=== PATIENT | female | born 1995 | race Caucasian/White ===

== ENCOUNTER 2020-08-08 13:28 | Emergency (ER) | payer OTHER, SELFPAY ==
--- NOTE | ~2020-08-08 | XR_ITS ---
EXAMINATION: XR tibia fibula RT 2V DATE: 08/08/2020 14:14 INDICATION: Right lower leg pain. TECHNIQUE: 2 views of right tibia and fibula on 4 radiographs were obtained. COMPARISON: None. FINDINGS: Bone alignment is normal. No fracture. Joint spaces are normal. There is a small knee joint effusion. IMPRESSION: 1. Small knee joint effusion. Reviewed, dictated and finalized at location A.
[2020-08-08 13:43] VITALS: BP 133/88; PULSE 75; RESP 16; TEMP 37.2; O2SAT 100
--- NOTE | 2020-08-08 13:56 | ED.GENADULT ---
HPI - General Adult General Chief complaint: Extremity Injury, Lower Stated complaint: INJURED R LEG Time Seen by Provider: 08/08/20 13:56 Source: patient and RN notes reviewed Mode of arrival: ambulatory Limitations: no limitations History of Present Illness HPI narrative: 25-year-old female presents with complains of pain to back of right lower leg for the past 3.5 hours. Sravanthi says she was walking up her steep driveway and heard a pop in right leg. No treatment. Denies radiation of pain. No numbness or tingling or bleeding. No swelling. No loss of mobility. Exacerbating factor consist of bearing weight. Denies recent travel or long car rides. History of DVT or PE. No chest pain or dyspnea. Remains active. The patient reports she have not been diagnosed with COVID-19. The patient reports she received her 1st Pfizer COVID-19 vaccine July 31, 2020. The patient reports she is not waiting for the results of a COVID-19 lab test. The patient reports she do not have fever, chills, weakness, fatigue, myalgia, or facial swelling. The patient reports she do not have a new or worsening cough. The patient reports she do not have any rhinorrhea, congestion, sore throat, nausea, vomiting, abdominal pain, and diarrhea. Tolerating po intake well. Denies concerns for COVID-19 or exposures been home with limited outdoor exposure except for essential household needs, work, and return home. At this time, patient is not suspected of having COVID-19. Some parts of this dictation were generated by voice recognition software and may contain typographical and/or grammatical inaccuracies. Related Data Allergies Allergy/AdvReac Type Severity Reaction Status Date / Time No Known Allergies Allergy Unverified 07/06/17 11:49 Review of Systems Review of Systems: Narrative: CONSTITUTIONAL: Denies fever, chills, sweats. EYES: Denies visual changes, redness, discharge. ENT: Denies rhinorrhea, congestion, sore throat, otalgia. CARDIOVASCULAR: Denies chest pain, palpitations, edema. RESPIRATORY: Denies dyspnea, wheezing, cough. GASTROINTESTINAL: Denies abdominal pain, nausea, vomiting, diarrhea. SKIN: Denies rash or itching. MUSCULOSKELETAL: Denies acute back pain or myalgia. Complains of pain to back of right lower leg. NEUROLOGIC: Denies numbness or focal weakness. PSYCHIATRIC: Denies anxiety or depression. All other systems reviewed & are unremarkable except as noted in HPI and below. [facility] Past Medical History Medical History (Updated 08/09/20 @ 00:00 by Cira Amin) Anxiety Surgical History Surgical History (Updated 08/08/20 @ 14:39 by STAN Rodriguez) History of dental surgery Family History Family History (Updated 08/08/20 @ 14:39 by STAN Rodriguez) Father Medical history unknown Mother Hypertension Grandparent Hypertension Diabetes mellitus Social History Social History (Updated 08/08/20 @ 14:40 by STAN Rodriguez) Smoking status: Never smoker Tobacco type: cigarettes Second hand tobacco smoke exposure: No Alcohol intake: current Substance use: never Substance use type: does not use Living arrangements: with family Occupation/Education: occupation Gender identity (if verbalized by the patient): Female Sexual Orientation (if Verbalized by the Patient): Straight or Heterosexual Comments At time of signature, agree with nurse past medical, surgical, social, and family history. There is no relevant family history pertinent to the presenting complaint. Exam Narrative: Exam Narrative: GENERAL: This is a well-nourished, well-developed patient, in no apparent distress. Talks in full sentences and ambulates with RT antalgic gait without dyspnea. HEAD: Normocephalic, atraumatic. EYES: PERRL. Sclera clear/white. Vision is grossly intact. NECK: Neck supple, non-tender without lymphadenopathy, masses or thyromegaly. CARDIOVASCULAR: Regular rate and rhythm without
[2020-08-08] MEDS: KETOROLAC (*BKC) 60 MG/2 ML VIAL IM (14:37)
== END 2020-08-08 15:00 | disposition home or self-care (01) ==
PROVIDERS: Emergency Provider Nurse Practitioner Family
DX: S86.911A Strain of unspecified muscle(s) and tendon(s) at lower leg level, right leg, initial encounter (principal); X58.XXXA Exposure to other specified factors, initial encounter
CPT/HCPCS: 73590; 96372; 99203; G0463; J1885

== ENCOUNTER 2020-10-28 10:41 | Emergency (ER) | payer OTHER, SELFPAY ==
[2020-10-28 10:55] VITALS: BP 127/77; PULSE 70; RESP 18; TEMP 36.9; O2SAT 100
--- NOTE | 2020-10-28 11:34 | ED.GENADULT ---
HPI - General Adult General Chief complaint: Upper Respiratory Infection Stated complaint: sore throat History of Present Illness HPI narrative: Esther this is a 25-year-old female comes in complaining of a sore throat states that it started last night patient says that she has a history of strep throat patient states that she is taking some allergy medicine but her throat was really hurting when she swallows. Related Data Home Medications Medication Instructions Recorded Confirmed loratadine [Claritin] mg 10/28/20 Allergies Allergy/AdvReac Type Severity Reaction Status Date / Time No Known Allergies Allergy Unverified 07/06/17 11:49 Review of Systems Review of Systems: Narrative: CONSTITUTIONAL: Denies fever, chills, or sweats. EYES: Denies visual changes, redness, or discharge. ENT: Denies rhinorrhea, congestion, reports sore throat, or otalgia. CARDIOVASCULAR:Denies chest pain, palpitations, or edema. RESPIRATORY: Denies cough or dyspnea. GASTROINTESTINAL: Denies abdominal pain, nausea, vomiting, or diarrhea. GENITOURINARY: Denies dysuria or hematuria. SKIN:[Denies rash or itching. MUSCULOSKELETAL:Denies back pain, joint pain, or myalgia. NEUROLOGIC: Denies headache, numbness, or weakness. PSYCHIATRIC:Denies anxiety or depression PMFSH Past Medical History Medical History (Updated 10/28/20 @ 11:56 by Alana Santillan NP) Anxiety Surgical History Surgical History (Updated 08/08/20 @ 14:39 by STAN Rodriguez) History of dental surgery Family History Family History (Updated 08/08/20 @ 14:39 by STAN Rodriguez) Father Medical history unknown Mother Hypertension Grandparent Hypertension Diabetes mellitus Social History Social History (Updated 08/08/20 @ 14:40 by STAN Rodriguez) Smoking status: Never smoker Tobacco type: cigarettes Second hand tobacco smoke exposure: No Alcohol intake: current Substance use: never Substance use type: does not use Gender identity (if verbalized by the patient): Female Comments At time as signature, I have reviewed and agree with nursing past medical, social, surgical and family history. Please see nursing chart for further information. There is no relevant family history pertinent to the presenting complaint. Exam Narrative: Exam Narrative: GENERAL:Well-appearing, well-nourished, and in no acute distress. HEAD:Normocephalic, atraumatic. EYES: PERRLA and EOMI. ENT: Nares clear, no rhinorrhea or epistaxis. Mucous membranes moist. Pharyngeal erythema bilateral enlarged tonsils exudate noted on the left side surrounding tonsil NECK: Supple. CHEST: Clear to auscultation. No respiratory distress. HEART: Regular rate and rhythm. Normal peripheral pulses. ABDOMEN: Soft, nontender, nondistended, normal active bowel sounds. EXTREMITIES: Normal range of motion. No edema. SKIN: Warm, dry, no rash. NEURO: No focal deficits. Alert and oriented x3. Course MANAGER IMAGE/PA Physician Supervision Has had strep is negative Vital Signs Vital signs: Vital Signs Temperature 98.5 F 10/28/20 10:55 Pulse Rate 70 10/28/20 10:55 Respiratory Rate 18 10/28/20 10:55 Blood Pressure 127/77 10/28/20 10:55 Pulse Oximetry 100 10/28/20 10:55 Temperature 98.5 F 10/28/20 10:55 Pulse Rate 70 10/28/20 10:55 Respiratory Rate 18 10/28/20 10:55 Blood Pressure 127/77 10/28/20 10:55 Pulse Oximetry 100 10/28/20 10:55 Medical Decision Making Vital Signs Vital Signs: Vital Signs Temperature 98.5 F 10/28/20 10:55 Pulse Rate 70 10/28/20 10:55 Respiratory Rate 18 10/28/20 10:55 Blood Pressure 127/77 10/28/20 10:55 Pulse Oximetry 100 10/28/20 10:55 Temperature 98.5 F 10/28/20 10:55 Pulse Rate 70 10/28/20 10:55 Respiratory Rate 18 10/28/20 10:55 Blood Pressure 127/77 10/28/20 10:55 Pulse Oximetry 100 10/28/20 10:55 Lab Data Labs: Strep Screen Presum
== END 2020-10-28 11:59 | disposition home or self-care (01) ==
PROVIDERS: Emergency Provider Nurse Practitioner Family
DX: J03.90 Acute tonsillitis, unspecified (principal)
CPT/HCPCS: 87081; 87880; 99213; G0463